=== PATIENT | male | born 1970 | race Caucasian/White ===

== ENCOUNTER 2019-12-29 17:02 | Emergency (ER) | payer MEDICARE ==
--- NOTE | 2019-12-29 17:11 | ER Document Report ---
ED Medical Screen (RME) - General Chief Complaint: Abscess Stated Complaint: ABSCESS/UNDER CHIN Time Seen by Provider: 12/29/19 17:09 Primary Care Provider: RYLIE SORENSEN MD [Primary Care Provider] - Follow up as needed Notes: 49 y/o male presents for possible abscess under left chin/near neck for "weeks." Denies fever. Pt has no significant past history per family members. Pt is mentally handicapped. Approximately 6 cm fluctuant abscess noted left neck. Pt tachycardic. I have greeted and performed a rapid initial assessment of this patient. A comprehensive ED assessment and evaluation of the patient, analysis of test results and completion of the medical decision making process with be conducted by additional ED providers. - Related Data Allergies/Adverse Reactions: No Known Allergies Allergy (Unverified 01/05/14 01:18) Past Medical History - Immunizations Hx Diphtheria, Pertussis, Tetanus Vaccination: - unk Doctor's Discharge - Discharge Referrals: RYLIE SORENSEN MD [Primary Care Provider] - Follow up as needed
[2019-12-29] MEDS ORDERED: LORAZEPAM INJ 2 MG/1 ML VIAL IM ONE (17:43)
--- NOTE | 2019-12-29 17:51 | ER Document Report ---
ED General - General Chief Complaint: Abscess Stated Complaint: ABSCESS/UNDER CHIN Time Seen by Provider: 12/29/19 17:09 Primary Care Provider: RYLIE SORENSEN MD [Primary Care Provider] - Follow up as needed TRAVEL OUTSIDE OF THE [place] IN LAST 30 DAYS: No - HPI Notes: Mr. Powers is a 49-year-old male with severe developmental delay related to cerebral palsy presenting with a chief complaint of of an abscess present over the left anterior neck area for over a month. He was seen in urgent care clinic within the last week and started on Septra orally which he is taking. He is not on any other regular medication. No fever chills or vomiting. Mother who accompanies him and is his principal shim plug cutter states that the lesion is getting larger. Patient last ate a meal around noon today and had some fluids orally at around 3 PM. He has been sedated on multiple occasions in the past for dental work this is been several years ago and mother is unsure what type of agent was administered for sedation. - Related Data Allergies/Adverse Reactions: No Known Allergies Allergy (Unverified 01/05/14 01:18) Past Medical History - General Information source: Parent, Relative Cannot obtain history due to: Mentally challenged - Social History Smoking Status: Never Smoker Chew tobacco use (# tins/day): No Frequency of alcohol use: None Drug Abuse: None Family History: None Patient has suicidal ideation: No Patient has homicidal ideation: No - Immunizations Hx Diphtheria, Pertussis, Tetanus Vaccination: - unk Review of Systems - Review of Systems -: Yes ROS unobtainable due to patient's medical condition Physical Exam - Vital signs Vitals: Temp Pulse Resp BP Pulse Ox 97.5 F 105 H 16 158/105 H 96 12/29/19 17:11 12/29/19 17:11 12/29/19 17:11 12/29/19 17:11 12/29/19 17:11 - Notes Notes: GENERAL: Male patient of approximately stated age seen sitting in a wheelchair. Patient is moderately uncooperative with examination. He does not appear toxic. SKIN: Good turgor no rashes. HEAD: Normocephalic atraumatic. EYES: PERRLA. EOMI. Conjunctivae and sclerae clear. EARS: CANALS AND TMS CLEAR. NOSE: CLEAR. MOUTH: Moist mucosa. Good dentition. No stridor or edema. No drooling. NECK: Patient has a 5.0 cm area of fluctuance tenderness and slight redness over the left anterior neck area. Supple. No masses or thyromegaly. No adenopathy. Carotids 2+ without bruits. No JVD. BACK: Symmetrical without tenderness. CHEST: Respirations unlabored. Breath sounds clear and symmetrical. HEART: Regular rhythm. No murmur gallop or rub. ABDOMEN: Soft nontender without masses, organomegaly or rebound. Bowel sounds normally active. No bruits. GENITALIA: Deferred. EXTREMITIES: No edema. No calf tenderness. Cap refill less than 1.5 seconds. Dorsalis pedis and posterior tibial pulses 3+ and symmetrical. NEUROLOGICAL: He is alert and at his baseline per family. He is nonverbal but moderately interactive. Cranial nerves II through XII intact. Moving all 4 extremities spontaneously. Course - Re-evaluation Re-evalutation: 12/29/19 19:35 Patient was premedicated with Ativan 2 mg IM prior to the procedure. I&D was performed (see procedure note). Procedure was well-tolerated without complications and patient will go home with addition of clindamycin orally and may take Tylenol PRN. Family is instructed and repacking. Follow-up with primary care physician. - Vital Signs Vital signs: Temp Pulse Resp BP Pulse Ox 97.5 F 105 H 16 158/105 H 96 12/29/19 17:11 12/29/19 17:11 12/29/19 17:11 12/29/19 17:11 12/29/19 17:11 Procedures - Incision and Drainage Left Anterior Neck Time completed: 19:30 Type: Simple, Single Anesthetic type: 1% Lidocaine mL's of anesthetic: 10 Blade size: 11 I&D procedure: Betadine prep applied, Iodoform packing placed, Sterile dressing applied Incision Method: Incision made by scalpel Notes: 12/29/19 19:34 10 cc caseous material c/w sebaceous cyst. Discharge - Discharge Clinical Impression: Sebaceous cyst with abscess neck Condition: Stable Disposition: HOME, SELF-CARE Instructions: Abscess ([facility]), Post Incision and Drainage Additional Instructions: Tylenol as needed. Repacking and cleansing as directed. Follow-up with referral physician 2 to 3 days. Return here as needed for new or worsening symptoms: Pain that is worsening or unimproved Uncontrolled vomiting High fever or shaking chills Overall worsening Prescriptions: Clindamycin HCl 300 mg PO QID 10 Days #40 capsule Referrals: RYLIE SORENSEN MD [Primary Care Provider] - Follow up as needed
[2019-12-29] MEDS ORDERED: LIDOCAINE 1% INJ-PF (10 MG/ML) 30 ML SDV INJ ONE (18:34)
[2019-12-29 20:43] VITALS: BP 138/98
== END 2019-12-29 20:00 | disposition home or self-care (01) ==
LOC: ER 17:02
DX: L72.3 Sebaceous cyst (principal); L02.11 Cutaneous abscess of neck
CPT/HCPCS: 10060; 99283; 96372; J3490; J2060